=== PATIENT | male | born 1970 | race Caucasian/White ===

== ENCOUNTER 2017-10-30 05:53 | Inpatient (IN) | payer BC ==
[2017-10-08 13:23] VITALS: BMI 36.0
--- NOTE | 2017-10-08 13:59 | PAT Medication Instructions ---
Service Date Oct 08, 2017. Current Home Medication List Acetaminophen (Tylenol), Unknown Dose PO UD PRN for Pain Citalopram (Citalopram Hydrobromide), 1 TAB PO QAM Pantoprazole (Protonix), 40 MG PO BID Medication Instructions For Your Scheduled Surgery - Take the following medications the morning of surgery with a sip of water: Acetaminophen (Tylenol), Unknown Dose PO UD PRN for Pain (okay to take up to 4 hours prior to surgery if needed) Citalopram (Citalopram Hydrobromide), 1 TAB PO QAM Pantoprazole (Protonix), 40 MG PO BID - Take the following medications as scheduled the night before surgery: Acetaminophen (Tylenol), Unknown Dose PO UD PRN for Pain (if needed) Citalopram (Citalopram Hydrobromide), 1 TAB PO QAM Pantoprazole (Protonix), 40 MG PO BID If you have any questions please call us at [phone] or [phone] or [phone]
--- NOTE | 2017-10-08 14:33 | DIAGNOSTIC IMAGING REPORT ---
CHEST 2 VIEWS ROUTINE CLINICAL HISTORY: 47 years-old Male presenting with preoperative assessment. TECHNIQUE: PA and lateral views of the chest were obtained. COMPARISON: None. FINDINGS: Cardiomediastinal silhouette normal. Lungs and pleural spaces clear. Osseous structures normal. Upper abdomen normal. IMPRESSION: 1. No acute cardiopulmonary disease. Electronically signed by: Eugene Field M.D. 10/08/2017 2:31 PM Dictated Date/Time: 10/08/2017 2:30 PM
[2017-10-08 14:55] LABS: INR 0.9 (0.9-1.1); PTT PATIENT 29.5 SECONDS (21.0-31.0)
[2017-10-09 08:12] LABS: HEMOGLOBIN A1C 5.4 % (4.5-5.6)
--- NOTE | 2017-10-29 10:31 | HISTORY & PHYSICAL EXAMINATION ---
DATE OF ADMISSION: 10/30/2017 CHIEF COMPLAINT: Right hip pain. HISTORY OF PRESENT ILLNESS: The patient is a 47-year-old male seen and evaluated in our office for progressive right hip pain and disability. He had an MRI which shows moderate AVN of the right femoral head and early AVN of the left femoral head. There is some early collapse noted on the right side. He has difficulty with activities of daily living including his job requirements. Due to ongoing pain and disability, he now desires to proceed with right total hip arthroplasty. PAST MEDICAL HISTORY: Denies. PAST SURGICAL HISTORY: None. MEDICATIONS: Citalopram 10 mg daily. ALLERGIES: No known drug allergies. SOCIAL HISTORY: He states moderate alcohol use and smokeless tobacco use. REVIEW OF SYSTEMS: Noncontributory. PHYSICAL EXAMINATION: GENERAL: Well-nourished, well-developed male who appears his stated age. HEENT: Normocephalic, atraumatic, extraocular movements intact, oropharynx pink and moist. NECK: Supple without adenopathy. LUNGS: Clear to auscultation bilaterally. HEART: Regular rate and rhythm. ABDOMEN: Soft, nontender, nondistended. EXTREMITIES: Upper extremities are within normal limits. The right hip is irritable upon range of motion. X-RAYS: X-rays and MRI reviewed. The x-rays are suggestive of AVN on the superior aspect of the femoral head. The MRI shows moderate size area of AVN on the superior aspect of the femoral head with some early collapse. 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 PLAN: Risks versus benefits were discussed, consent was obtained. The patient's primary care physician is Dr. Eloina Burks. We will proceed with right total hip arthroplasty as indicated.
[2017-10-30] VITALS (10 sets, daily range): BP systolic 100–150; BP diastolic 58–101; PULSE 65–78; TEMP 36.5–36.7; O2SAT 94–98; Ht 165.1 cm; Wt 99.2 kg
[~2017-10-30] VITALS: Ht 165.1 cm; Wt 99.2 kg
[~2017-10-30 05:53] MED LIST: ACET-1256 PO; CITA40TA4 PO; PANT40TA PO
[2017-10-30] MEDS ORDERED: ACETAMINOPHEN 500 MG TAB PO SCH (06:00)
[2017-10-30] MEDS ORDERED: CEFAZOLIN 2000MG IV PUSH 15 ML IV SCH (06:00)
[2017-10-30] MEDS ORDERED: GABAPENTIN 900 MG PO SCH (06:00)
[2017-10-30] MEDS ORDERED: METOCLOPRAMIDE HCL 10 MG TAB PO SCH (06:00)
[2017-10-30] MEDS ORDERED: LACTATED RINGER'S 1000ML 1,000 ML IV SCH (06:00)
[2017-10-30] MEDS ORDERED: LACTATED RINGER'S 1000ML 500 ML IV SCH (06:00)
[2017-10-30] MEDS ORDERED: ROPIVACAINE 5MG/ML 30 ML 150 MG, BUPIVACAINE 0.5% MPF INJ 30 ML, EpINEphrine HCL INJ 0.... INFIL SCH ×8 (06:00)
[2017-10-30] MEDS ORDERED: CeleBREX 200 MG CAP PO SCH (06:00)
[2017-10-30] MEDS ORDERED: OXYCODONE HCL 10 MG TABCR (OXYCONTIN) PO SCH (06:00)
[2017-10-30] MEDS ORDERED: FAMOTIDINE 20 MG TAB PO SCH (06:00)
[2017-10-30] MEDS ORDERED: DEXAMETHASONE 4 MG TAB PO SCH (06:00)
[2017-10-30] MEDS: TRANEXAMIC ACID INJ 1,000 MG x 2 Bags IV SCH ×4 (06:30→07:27)
[2017-10-30] MEDS ORDERED: BUPIVACAINE 0.5 % 5 MG/1 ML PF 10ML VIAL ONE (06:32)
[2017-10-30] MEDS ORDERED: MIDAZOLAM HCL 1 MG/ML 2ML VIAL ONE ×2 (06:38→08:46)
[2017-10-30] MEDS ORDERED: FENTANYL CITRATE INJ 50 MCG/1 ML 2 ML VIAL ONE (06:38)
[2017-10-30] MEDS ORDERED: PROPOFOL IV EMULSION 10 MG/ML 20 ML VIAL IV ONE (06:47)
[2017-10-30] MEDS ORDERED: LIDOCAINE HCL 2% 2 ML VIAL (20MG/ML) ONE (06:47)
[2017-10-30] MEDS ORDERED: ONDANSETRON INJ 2 MG/ML 2 ML VIAL ONE (06:47)
--- NOTE | 2017-10-30 06:57 | History & Physical Bridge Note ---
H&P Re-Evaluation Bridge Note: I have examined the patient, reviewed the History & Physical and in the interval since the performance of the History & Physical I have noted the following changes of clinical significance: No changes noted
[2017-10-30] MEDS ORDERED: ORTHO JOINT ANESTHETIC ONE (07:22)
[2017-10-30] MEDS ORDERED: BACITRACIN 50000 UNIT VIAL ONE (07:22)
[2017-10-30] MEDS ORDERED: POVIDONE-IODINE OP SOLN 30 ML BTL ONE (07:22)
[2017-10-30] MEDS ORDERED: FAMOTIDINE 20 MG TAB ONE (07:25)
[2017-10-30] MEDS ORDERED: METOCLOPRAMIDE HCL 10 MG TAB PO ONE (07:25)
[2017-10-30] MEDS ORDERED: CeleBREX 200 MG CAP ONE (07:25)
[2017-10-30] MEDS ORDERED: GABAPENTIN 300 MG CAP PO ONE (07:25)
[2017-10-30] MEDS ORDERED: ACETAMINOPHEN 500 MG TAB PO ONE (07:25)
[2017-10-30] MEDS ORDERED: DEXAMETHASONE 4 MG TAB ONE (07:25)
[2017-10-30] MEDS ORDERED: OXYCODONE HCL 10 MG TABCR (OXYCONTIN) PO ONE (07:26)
--- NOTE | 2017-10-30 08:45 | [facility] Post Operative Brief Note ---
Immediate Operative Summary Operative Date Oct 30, 2017. 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 Procedure(s) Performed Right Total Hip Arthroplasty Uncemented Surgeon Dr Silva Barge Captain Surgeon(s) Pawel Ely Estimated Blood Loss 150cc Findings Consistent with Post-Op Diagnosis Specimens As Per Surgeon A. Right Femoral Head Anesthesia Type MAC Spinal Regional Complication(s) none Disposition Accompanied Pt To Recover: no Disposition: Recovery Room / PACU
[2017-10-30] MEDS ORDERED: EpHEDrine SULFATE INJ 50 MG/ML AMP IV PRN (09:15)
[2017-10-30] MEDS ORDERED: ATROPINE SULFATE 0.1 MG/ML 5ML SYR IV PRN (09:15)
[2017-10-30] MEDS ORDERED: FENTANYL CITRATE INJ 50 MCG/1 ML 2 ML VIAL IV PRN (09:15)
[2017-10-30] MEDS ORDERED: ONDANSETRON INJ 2 MG/ML 2 ML VIAL IV PRN ×2 (09:15→09:30)
[2017-10-30] MEDS ORDERED: MAGNESIUM HYDROXIDE SUSP 30 ML UDC PO PRN (09:30)
[2017-10-30] MEDS ORDERED: TAMSULOSIN HCL 0.4 MG CAP PO PRN (09:30)
[2017-10-30] MEDS ORDERED: TRAMADOL HCL 50 MG TAB PO PRN (09:30)
[2017-10-30] MEDS ORDERED: ALUMINUM/MAGNESIUM/SIMETH (MAALOX MAX) 30 ML UDC PO PRN (09:30)
[2017-10-30] MEDS ORDERED: MoRPHine SULFATE 4 MG/ML 1 ML CARP\\VIAL IV PRN (09:30)
--- NOTE | 2017-10-30 10:06 | Anesthesiology Progress Note ---
Anesthesia Post Op Note Date & Time Oct 30, 2017 at 10:06 Vital Signs Pain Intensity: 0 Vital Signs Past 12 Hours Date Time Temp Pulse Resp B/P (MAP) Pulse Ox O2 Delivery O2 Flow Rate FiO2 10/30/17 10:00 67 16 127/89 97 Nasal Cannula 2 10/30/17 09:45 36.4 65 16 121/84 97 Nasal Cannula 2 10/30/17 09:35 65 16 128/90 97 Nasal Cannula 2 10/30/17 09:25 65 16 119/82 98 Nasal Cannula 2 10/30/17 09:17 36.6 70 16 123/99 95 Oxymask 5 10/30/17 06:07 36.7 68 18 150/100 97 Room Air 148/101 Notes Mental Status: alert / awake / arousable, participated in evaluation Pt Amnestic to Procedure: Yes Nausea / Vomiting: adequately controlled Pain: adequately controlled Airway Patency, RR, SpO2: stable & adequate BP & HR: stable & adequate Hydration State: stable & adequate Neuraxial Anesthesia: was administered, sensory block is resolving Anesthetic Complications: no major complications apparent
--- NOTE | 2017-10-30 10:10 | DIAGNOSTIC IMAGING REPORT ---
SINGLE VIEW PELVIS; SINGLE VIEW RIGHT HIP CLINICAL HISTORY: Postoperative examination. FINDINGS: An AP portable view of the hips and pelvis with a crosstable lateral portable view of the right hip are obtained. A bipolar right hip arthroplasty is in near-anatomic alignment. A single cortical lag screw transfixes the acetabular cup. No acute fracture is identified. There are expected postoperative changes overlying the right hip including subcutaneous gas, a surgical drain, and soft tissue swelling. A phlebolith is noted in the left hemipelvis. IMPRESSION: Expected postoperative findings status post right hip arthroplasty. No acute fracture is seen. Electronically signed by: Castillo Ramos M.D. 10/30/2017 10:09 AM Dictated Date/Time: 10/30/2017 10:08 AM
--- NOTE | 2017-10-30 10:25 | OPERATIVE REPORT ---
DATE OF OPERATION: 10/30/2017 PREOPERATIVE DIAGNOSIS: Avascular necrosis, right hip. POSTOPERATIVE DIAGNOSIS: Avascular necrosis, right hip. PROCEDURE: Right total hip arthroplasty. SURGEON: Dr. Silva. PLATING TANK OPERATOR APPRENTICE: [facility] Clayton ANESTHESIA: Spinal. COMPLICATIONS: None. OPERATION AND FINDINGS: Acetabular reamer used 56, acetabular shell 56, stem 5 ____ and femoral head 36+0. DISPOSITION: Recovery room stable. I attest to the content of the Intraoperative Record and any orders documented therein. Any exception s are noted below.
[2017-10-30] MEDS: D5W AND 1/2NSS + 20MEQ KCL 1,000 ML IV SCH ×2 (13:22→23:27)
[2017-10-30] MEDS: CEFAZOLIN IV 2,000 MG in SYRINGE 0 ML IV SCH ×2 (17:03→23:15)
[2017-10-30] MEDS: OXYCODONE HCL IR 5 MG TAB (IMMEDIATE RELEASE) PO PRN ×2 (17:07→22:39)
[2017-10-30] MEDS ORDERED: SENNA 8.6 MG TAB PO SCH (21:00)
[2017-10-30] MEDS: CeleBREX 200 MG CAP PO SCH (21:11)
[2017-10-30] MEDS: ACETAMINOPHEN 500 MG TAB PO SCH (21:12)
[2017-10-30] MEDS: DOCUSATE SODIUM 100 MG CAP PO SCH (21:12)
[2017-10-30] MEDS: ASPIRIN 81 MG ECTAB PO SCH (21:12)
[2017-10-31 03:00] VITALS: BP 112/66; PULSE 67; TEMP 36.6; O2SAT 97
[2017-10-31] MEDS: ACETAMINOPHEN 500 MG TAB PO SCH (05:20)
[2017-10-31] MEDS: OXYCODONE HCL IR 5 MG TAB (IMMEDIATE RELEASE) PO PRN ×2 (05:21→10:03)
[2017-10-31 06:49] LABS: BASO % 0.1 %; BASO ABS # 0.01 K/uL (0-0.2); EOS % 0.4 %; EOS ABS # 0.05 K/uL (0-0.5); HEMATOCRIT 34.4 % (42-52); HEMOGLOBIN 11.6 g/dL (14.0-18.0); IG# 0.04 K/uL (0.00-0.02); LYMPH % 17.4 %; LYMPH ABS # 2.13 K/uL (1.2-3.4); MEAN CELL VOLUME 95.8 fL (80-100); MEAN CORPUSCULAR HEMOGLOBIN 32.3 pg (25-34); MEAN CORPUSCULAR HGB CONC 33.7 g/dl (32-36); MEAN PLATELET VOLUME 10.4 fL (7.4-10.4); MONO % 11.9 %; MONO ABS # 1.46 K/uL (0.11-0.59); NEUT % 69.9 %; NEUT ABS # 8.57 K/uL (1.4-6.5); PLATELET COUNT 293 K/uL (130-400); RED CELL DISTRIBUTION WIDTH SD 45.8 fL (36.4-46.3); WHITE BLOOD COUNT 12.26 K/uL (4.8-10.8)
[2017-10-31 07:09] VITALS: BP 120/76; PULSE 61; TEMP 36.6; O2SAT 95
[2017-10-31 07:20] LABS: CALCIUM 8.4 mg/dl (8.5-10.1); CREATININE 0.84 mg/dl (0.60-1.40); POTASSIUM 3.9 mmol/L (3.5-5.1)
[2017-10-31] MEDS: ASPIRIN 81 MG ECTAB PO SCH (08:33)
[2017-10-31] MEDS: DOCUSATE SODIUM 100 MG CAP PO SCH (08:33)
[2017-10-31] MEDS: CeleBREX 200 MG CAP PO SCH (08:33)
--- NOTE | 2017-10-31 08:33 | Orthopedic Progress Note ---
Orthopedic Progress Note Date of Service Oct 31, 2017. Subjective Post OP Day: 1 Reports: feeling well Objective N/V intact, dressing C/D/I (Hemovac in place), toes mobile Date Time Temp Pulse Resp B/P (MAP) Pulse Ox O2 Delivery O2 Flow Rate FiO2 10/31/17 07:09 36.6 61 16 120/76 (91) 95 Room Air 10/31/17 03:00 36.6 67 16 112/66 (81) 97 Room Air 10/30/17 23:30 Room Air 10/30/17 22:45 36.5 67 16 116/70 (85) 95 Room Air 10/30/17 20:21 36.5 71 18 100/58 (72) 94 Room Air 10/30/17 18:50 Room Air 10/30/17 16:17 36.7 73 18 102/64 (77) 97 Nasal Cannula 2.0 10/30/17 13:28 78 16 107/71 (83) 97 10/30/17 12:28 74 16 120/80 (93) 98 10/30/17 11:16 68 1 141/89 (106) 97 10/30/17 10:54 97 Nasal Cannula 2.0 10/30/17 10:47 65 16 127/90 (102) 97 10/30/17 10:10 97 Room Air 2.0 10/30/17 10:10 36.6 65 18 121/80 (94) 97 Nasal Cannula 2.0 10/30/17 10:00 67 16 127/89 97 Nasal Cannula 2 10/30/17 09:45 36.4 65 16 121/84 97 Nasal Cannula 2 10/30/17 09:35 65 16 128/90 97 Nasal Cannula 2 10/30/17 09:25 65 16 119/82 98 Nasal Cannula 2 10/30/17 09:17 36.6 70 16 123/99 95 Oxymask 5 Laboratory Results 24 Hours: Test 10/31/17 06:25 White Blood Count 12.26 K/uL Red Blood Count 3.59 M/uL Hemoglobin 11.6 g/dL Hematocrit 34.4 % Mean Corpuscular Volume 95.8 fL Mean Corpuscular Hemoglobin 32.3 pg Mean Corpuscular Hemoglobin Concent 33.7 g/dl Platelet Count 293 K/uL Mean Platelet Volume 10.4 fL Neutrophils (%) (Auto) 69.9 % Lymphocytes (%) (Auto) 17.4 % Monocytes (%) (Auto) 11.9 % Eosinophils (%) (Auto) 0.4 % Basophils (%) (Auto) 0.1 % Neutrophils # (Auto) 8.57 K/uL Lymphocytes # (Auto) 2.13 K/uL Monocytes # (Auto) 1.46 K/uL Eosinophils # (Auto) 0.05 K/uL Basophils # (Auto) 0.01 K/uL Assessment & Plan Assessment: 47 yo male stable POD #1 s/p right [place] Plan: 1. Med management 2. DVT prophylaxis- ASA, SCDs 3. PT/OT 4. D/C planning- home w/ HH
[2017-10-31] MEDS ORDERED: CLB200 PO (08:35)
[2017-10-31] MEDS ORDERED: RXC5 PO (08:35)
[2017-10-31] MEDS ORDERED: ONDA8TAB12 PO (08:35)
[2017-10-31] MEDS ORDERED: ACET-24 PO (08:35)
[2017-10-31] MEDS ORDERED: ASPEC81 PO (08:35)
--- NOTE | 2017-10-31 08:36 | Discharge Instructions ---
Discharge Instructions Date of Service Oct 31, 2017. Admission Reason for Admission: Right Hip Osteoarthritis Discharge Discharge Diagnosis / Problem: Right hip arthritis/avascular necrosis Discharge Goals Goal(s): Decrease discomfort, Improve function Activity Recommendations Activity Limitations: as noted below Weightbearing Status: Right weightbearing (as tolerated) . Instructions / Follow-Up Instructions / Follow-Up ACTIVITY RECOMMENDATIONS: SELF CARE INSTRUCTIONS AFTER TOTAL HIP REPLACEMENT Until the incision and soft tissues around your hip have healed, there is a possibility that the hip prosthesis could dislocate. A. Observe the following precautions to prevent dislocation: 1. Don't bend your hip greater than 90 degrees. 2. Avoid crossing your legs or ankles while standing or lying. 3. Sit with your feet placed 6 inches apart. 4. When sitting, keep your knees below your hips. Sit on a firm surface, avoid deep, soft chairs and couches. Use an elevated toilet seat in the bathroom. 5. Don't bend over at the waist. Use a long handled shoehorn and a sock aid to help you put on your shoes and socks. A sawmill moulder operator can help you poultry picker objects that are too high or too low to reach. 6. Keep car riding to a minimum for at least one month after surgery. B. Your balance may be shaky for a while. Use crutches or a walker until directed by your doctor. C. Use hand rails when walking on stairs. D. Wear low heeled shoes with non-slip soles. E. Be sure that your floors are free of things that could trip you - throw rugs , electrical cords, small objects. Avoid wet and waxed floors, especially with crutches and canes. F. Try to walk several times a day with rest periods between. G. Continue with all the exercises taught to you in the hospital. Again, make walking a part of your daily routine. SPECIAL CARE INSTRUCTIONS: VERY IMPORTANT TO READ AND REVIEW A. You may still be at risk for phlebitis and blood clots. 1. Wear surgical stockings (LISA hose) for 2 weeks after surgery to improve circulation and reduce swelling. 2. Take Aspirin 81mg twice daily for 4 weeks or as directed by your doctor. This is your blood thinner. 3. High risk patients may be prescribed a stronger blood thinner if necessary. 4. If you are on Coumadin normally, your family doctor/granulating machine operator should monitor your blood work. Expect a phone call the day of or the day after bloodwork is drawn to adjust your dosage. B. You must take antibiotics before having dental work, bladder, bowel and other surgery. Your doctor will provide you with a permanent card to carry describing precautions. C. Call [facility] if you have a fever, redness or swelling around the incision, cloudy drainage from incision, or sudden increase in pain in your hip, not relieved by your regular pain medication. D. Please call the office at if you have any concerns or questions about your operation or recovery. * YOU MAY SHOWER, NO TUB BATHS UNTIL CLEARED BY YOUR DOCTOR. * WEAR LISA HOSE 20 HOURS PER DAY FOR 2 WEEKS. * YOU SHOULD USE A WALKER OR CRUTCHES FOR 2-4 WEEKS. THIS WILL HELP PREVENT STRAIN ON YOUR HIP MUSCLE AND ALLOW IT TO HEAL PROPERLY. YOU MAY WEAN TO A CANE TOLERATED. * MOST PATIENTS WILL HAVE HOME NURSING FOR THERAPY. IF YOU DECIDE TO DO OUTPATIENT PHYSICAL THERAPY, PLEASE SCHEDULE THIS 3 TIMES PER WEEK. * YOU MAY HAVE A LARGE, BAND-JALEN LIKE DRESSING (SILVERON). THIS WILL REMAIN ON YOUR INCISION FOR 7 DAYS, THEN CAN BE REMOVED. IF INCISION IS LEAKING THROUGH DRESSING, PLEASE CALL THE OFFICE . FOLLOW UP VISIT: If appointment is not already scheduled: Please call [facility] to make a follow-up appointment for 2 weeks after your surgery at . Current Hospital Diet Patient's current hospital diet: Regular Diet Discharge Diet Recommended Diet: Regular Diet Procedures Procedures Performed: Right Total Hip Arthroplasty Uncemented Pending Studies Studies pending at discharge: no Laboratory Results Hemoglobin A1c Test 10/08/17 14:09 Range/Units Estimated Average Glucose 108 mg/dl Hemoglobin A1c 5.4 4.5-5.6 % Medical Emergencies . Who to Call and When: Medical Emergencies: If at any time you feel your situation is an emergency, please call 911 immediately. . Non-Emergent Contact Non-Emergency issues call your: Surgeon Call Non-Emergent contact if: temperature is above 101.5, your pain is not controlled, wound has increased drainage, wound has increased redness . "Provider Documentation" section prepared by Charlie Duque PA-C. . [facility] Monitoring Program Search Results: patient reviewed within database, no issues identified
[2017-10-31] MEDS ORDERED: PANTOprazole SOD 40 MG TAB PO SCH (09:00)
[2017-10-31] MEDS ORDERED: MULTIVITAMIN TAB PO SCH (09:00)
[2017-10-31] MEDS ORDERED: CITALOPRAM 40 MG TAB PO SCH (09:00)
--- NOTE | 2017-10-31 09:31 | Anesthesiology Progress Note ---
Anesthesia Post Op Note Date & Time Oct 31, 2017 at 09:30 Vital Signs Vital Signs Past 12 Hours Date Time Temp Pulse Resp B/P (MAP) Pulse Ox O2 Delivery O2 Flow Rate FiO2 10/31/17 07:09 36.6 61 16 120/76 (91) 95 Room Air 10/31/17 03:00 36.6 67 16 112/66 (81) 97 Room Air 10/30/17 23:30 Room Air 10/30/17 22:45 36.5 67 16 116/70 (85) 95 Room Air Notes Neuraxial Anesthesia: sensory block resolved
[2017-10-31 09:32] VITALS: BP 120/76; PULSE 61; TEMP 36.6; O2SAT 95
== END 2017-10-31 12:15 | disposition home health service (06) | DRG 470 ==
LOC: C.ACU 05:53 → C.3E 06:45 → ENRESERV 09:51
PROC: 0SR90JA Replacement of Right Hip Joint with Synthetic Substitute, Uncemented, Open Approach (ICD-10-PCS; principal; 2017-10-30 07:45)
DX: M16.11 Unilateral primary osteoarthritis, right hip (principal); M87.351 Other secondary osteonecrosis, right femur; F32.9 Major depressive disorder, single episode, unspecified; K21.9 Gastro-esophageal reflux disease without esophagitis; F17.220 Nicotine dependence, chewing tobacco, uncomplicated; E66.9 Obesity, unspecified; Z68.36 Body mass index [BMI] 36.0-36.9, adult; Z72.89 Other problems related to lifestyle